=== PATIENT | male | born 1995 | race African-American/Black ===

== ENCOUNTER 2018-02-17 10:47 | Outpatient (CLI) | payer OTHER | END 2018-02-17 10:48 | disposition home or self-care (01) | LOC: SC 10:47 | PROVIDERS: ATTEND Internal Medicine Pulmonary Disease | DX: G47.30 Sleep apnea, unspecified (principal); G47.10 Hypersomnia, unspecified; R06.83 Snoring; G47.8 Other sleep disorders; R41.89 Other symptoms and signs involving cognitive functions and awareness | CPT/HCPCS: 99203; 99212 ==

== ENCOUNTER 2018-03-16 17:33 | Emergency (ER) | payer OTHER ==
--- NOTE | 2018-03-16 18:31 | ED Physician Documentation ---
PD HPI LOWER EXT INJURY - Stated complaint Stated Complaint: LT LEG KNEE INJ - Chief complaint Chief Complaint: Ext Problem - History obtained from History obtained from: Patient - History of Present Illness PD HPI LOW EXT INJURY LOCATION: Left, Knee Type of injury: Blunt / blow (he says he was struck on side of knee at work and had pain at kneecap that looked abnormal and hurt a lot, then it popped and it felt better but still hurting a lot with movement. Mainly with extension and walking.) Where injury occurred: Work Timing - onset: Today Timing - details: Abrupt onset, Still present (improved but still hurting) Worsened by: Moving (extension at knee), Palpating Associated symptoms: Swelling (anterior knee). No: Weakness, Numbness Similar symptoms before: Has not had sx before Recently seen: Not recently seen Review of Systems Skin: denies: Abrasion (s), Laceration (s) Neurologic: denies: Focal weakness, Numbness PD PAST MEDICAL HISTORY - Past Medical History Musculoskeletal: None - Present Medications Home Medications: Ambulatory Orders Medication Instructions Recorded Confirmed Ibuprofen 600 mg PO TID PRN #25 tablet 03/16/18 Pentoxifylline 1 tab PO DAILY 03/16/18 03/16/18 Sertraline [Zoloft] 1 tab PO DAILY 03/16/18 03/16/18 - Allergies Allergies/Adverse Reactions: Allergies Allergy/AdvReac Type Severity Reaction Status Date / Time No Known Drug Allergies Allergy Verified 03/16/18 19:32 - Social History Does the pt smoke?: No Smoking Status: Never smoker PD ED PE NORMAL - Vitals Vital signs reviewed: Yes - General General: Alert and oriented X 3, No acute distress, Well developed/nourished - Derm Derm: Normal color, Warm and dry - Extremities Extremities: Other (left knee with tenderness anteriorly, no deformity. Some swelling prepatellar. He is able to extend at knee and the patellar tendon feels firm and intact, but tender. Ligament testing of knee is firm and not hurting. ) - Neuro Neuro: No motor deficit, No sensory deficit Results - Vitals Vitals: Oxygen O2 Source Room air - Rads (name of study) knee left Radiology: Prelim report reviewed (no fractures) PD MEDICAL DECISION MAKING - ED course Complexity details: considered differential (Sounds like his kneecap dislocated and relocated. No with pains in area. No obvious tendon disruption. ), d/w patient Departure - Departure Disposition: 01 Home, Self Care Clinical Impression: Dislocation, patella closed Qualifiers: Encounter type: initial encounter Laterality: left Qualified Code(s): S83.005A - Unspecified dislocation of left patella, initial encounter Condition: Stable Record reviewed to determine appropriate education?: Yes Instructions: ED Dislocation Patella Follow-Up: JOSE L Murillo [Provider Group] Prescriptions: Ibuprofen 600 mg PO TID PRN #25 tablet PRN Reason: Pain Comments: It sounds like your kneecap dislocated and then relocated spontaneously. This will have stretched out the muscle and tendon of the knee and the quadriceps muscles. He will be sore for several days even perhaps a week. Knee brace and crutches initially to help support the muscle and tendon. crutches as needed for nonweightbearing. Progress weightbearing as able. He can stop using the knee brace when up and around after several days to week if it is not hurting anymore. Over the next several days have gentle range of motion of the knee when resting. Ibuprofen 3-4 times a day for pain. This will help with inflammation as well. Follow-up with your primary care if not improved over the next several days. Forms: Activity restrictions Discharge Date/Time: 03/16/18 20:29
[2018-03-16] MEDS ORDERED: ACETAMINOPHEN 325 MG TABLET PO STA (19:13)
[2018-03-16] MEDS ORDERED: IBUPROFEN 800 MG TABLET PO STA (19:13)
[2018-03-16] MEDS ORDERED: traMADol 50 MG TABLET PO STA (19:13)
--- NOTE | 2018-03-16 19:22 | XRAY Report ---
Reason: struck knee; likely had patellar dislocation Procedure Date: 03/16/2018 Accession Number: [id number] / [id number] Procedure: XR - Knee 3 View LT CPT Code: FULL RESULT: EXAM: LEFT KNEE RADIOGRAPHY EXAM DATE: 03/16/2018 07:08 PM. CLINICAL HISTORY: Struck knee; likely had patellar dislocation. COMPARISON: None. TECHNIQUE: 3 views. FINDINGS: No acute fracture. There is lateral patellar tilt and widening of the medial patellofemoral joint space. No dislocation. No joint effusion. IMPRESSION: Lateral patellar tilt with widening of the medial patellofemoral joint space but no dislocation or fracture. RADIA
[2018-03-16 20:04] VITALS: BP 151/82
== END 2018-03-16 20:29 | disposition home or self-care (01) ==
LOC: ED 17:33
DX: S83.015A Lateral dislocation of left patella, initial encounter (principal); W31.89XA Contact with other specified machinery, initial encounter; Y99.0 Civilian activity done for income or pay
CPT/HCPCS: 73562; 99283; A9270

== ENCOUNTER 2018-05-02 19:35 | Outpatient (CLI) | payer OTHER | END 2018-05-02 19:36 | disposition home or self-care (01) | LOC: SC 19:35 | PROVIDERS: ATTEND Internal Medicine Pulmonary Disease | DX: R06.83 Snoring (principal) | CPT/HCPCS: 95810 ==

== ENCOUNTER 2018-05-21 09:55 | Outpatient (CLI) | payer OTHER | END 2018-05-21 09:56 | disposition home or self-care (01) | LOC: SC 09:55 | PROVIDERS: ATTEND Nurse Practitioner Family | DX: R06.83 Snoring (principal) | CPT/HCPCS: 99212; 99214 ==

== ENCOUNTER 2019-10-24 18:58 | Emergency (ER) | payer OTHER ==
[2019-10-24 19:04] VITALS: BP 145/74
[2019-10-24] MEDS ORDERED: cephALEXin 250 MG CAPSULE PO STA (19:20)
--- NOTE | 2019-10-24 19:21 | ED Physician Documentation ---
History of Present Illness - Stated complaint Stated Complaint: ABD PX - Chief complaint Chief Complaint: General - History obtained from History obtained from: Patient - History of Present Illness Timing: How many days ago (3) Pain level max: 3 Pain level now: 3 - Additonal information Additional information: Patient diagnosed with strep pharyngitis 2 days ago. Started on Penicillin. He states that the penicillin is bothering his stomach and requests an antibiotic change. He states that his sore throat is getting better. No fevers. No vomiting. Worse with swallowing, better with antibiotics Review of Systems Constitutional: denies: Fever, Chills GI: denies: Vomiting, Diarrhea Skin: denies: Rash PD PAST MEDICAL HISTORY - Past Medical History Past Medical History: No Musculoskeletal: None - Past Surgical History Past Surgical History: No - Present Medications Home Medications: Ambulatory Orders Medication Instructions Recorded Confirmed Ibuprofen 600 mg PO TID PRN #25 tablet 03/16/18 Pentoxifylline 1 tab PO DAILY 03/16/18 03/16/18 Sertraline [Zoloft] 1 tab PO DAILY 03/16/18 03/16/18 Cephalexin [Keflex] 500 mg PO Q6H #28 capsule 10/24/19 - Allergies Allergies/Adverse Reactions: Allergies Allergy/AdvReac Type Severity Reaction Status Date / Time No Known Drug Allergies Allergy Verified 03/16/18 19:32 - Social History Does the pt smoke?: No Smoking Status: Never smoker Does the pt drink ETOH?: No Does the pt have substance abuse?: No - Immunizations Immunizations are current?: Yes - POLST Patient has POLST: No PD ED PE NORMAL - Vitals Vital signs reviewed: Yes - General General: Alert and oriented X 3, No acute distress - HEENT HEENT: Moist mucous membranes - Derm Derm: Warm and dry - Neuro Neuro: Alert and oriented X 3 Results - Vitals Vitals: Vital Signs - 24 hr 10/24/19 19:01 Temperature 36.9 C Heart Rate 80 Respiratory 16 Rate Blood Pressure 145/74 H O2 Saturation 98 Oxygen O2 Source Room air PD MEDICAL DECISION MAKING - ED course Complexity details: considered differential, d/w patient ED course: We will change his antibiotics from penicillin to Keflex to see if this helps his abdominal discomfort. Patient is well-appearing, nontoxic. Afebrile. Normal phonation. No trismus. Patient counseled regarding signs and symptoms for which I believe and urgent re-evaluation would be necessary. Patient with good understanding of and agreement to plan and is comfortable going home at this time This document was made in part using voice recognition software. While efforts are made to proofread this document, sound alike and grammatical errors may occur. Departure - Departure Disposition: Home, Self Care Clinical Impression: Strep pharyngitis Condition: Good Instructions: ED Strep Pharyngitis Conf Follow-Up: your,doctor as needed [Other] Prescriptions: Cephalexin [Keflex] 500 mg PO Q6H #28 capsule Comments: Take all antibiotics until gone. Return if you worsen. You can stop the penicillin and change to the Keflex Discharge Date/Time: 10/24/19 19:26
== END 2019-10-24 19:26 | disposition home or self-care (01) ==
LOC: ED 18:58
DX: R10.9 Unspecified abdominal pain (principal); T36.0X5A Adverse effect of penicillins, initial encounter; J02.0 Streptococcal pharyngitis
CPT/HCPCS: 99282; 99283; A9270